=== PATIENT | female | born 1945 | race Caucasian/White ===

== ENCOUNTER 2017-12-19 08:23 | Inpatient (IN) | payer MEDICARE ==
[2017-12-11 15:37] LABS: BASOPHILS % (AUTO) 0.3 % (0-1); EOSINOPHILS # (AUTO) 0.3 X10'3 (0-0.9); LYMPHOCYTES # (AUTO) 1.2 X10'3 (1.1-4.8); LYMPHOCYTES % (AUTO) 12.8 % (21-51); MEAN CORPUSCULAR HEMOGLOBIN 32.2 PG (27.0-31.0); MEAN PLATELET VOLUME 8.9 FL (7.4-10.4); MONOCYTES # (AUTO) 0.6 X10'3 (0-0.9); MONOCYTES % (AUTO) 6.5 % (2-12); NEUTROPHILS # (AUTO) 7.3 X10'3 (1.8-7.7); NEUTROPHILS % (AUTO) 77.4 % (42-75); PRE OP HEMATOCRIT 42.7 % (35.0-45.0); PRE OP HEMOGLOBIN 14.9 g/dL (12.0-16.0); PRE OP PLATELET COUNT 240 X10'3 (140-440); RED BLOOD COUNT 4.64 X10'6 (4.20-5.60); RED CELL DISTRIBUTION WIDTH 12.2 % (11.5-14.5)
[2017-12-11 15:48] LABS: PRE OP PROTIME 10.7 SECONDS (9.0-12.0)
[2017-12-11 15:52] LABS: ALBUMIN 3.8 G/DL (3.4-5.0); ALBUMIN/GLOBULIN RATIO 1.1 (1.1-1.5); ALKALINE PHOSPHATASE 108 IU/L (46-116); BLOOD UREA NITROGEN 18 MG/DL (7-18); CALCIUM 9.3 MG/DL (8.5-10.1); CHLORIDE 108 MMOL/L (99-107); PRE OP ALT 16 U/L (30-65); PRE OP ANION GAP 10 (8-16); PRE OP AST 16 U/L (10-37); PRE OP BILIRUB, TOTAL 0.4 MG/DL (0.0-1.0); PRE OP GLUCOSE 99 MG/DL (70-104); PRE OP POTASSIUM 4.2 MMOL/L (3.4-5.1); PRE OP SODIUM 146 MMOL/L (135-145); TOTAL CARBON DIOXIDE 27.6 MMOL/L (24-32); TOTAL PROTEIN 7.3 G/DL (6.4-8.2); eGFR 61 ML/MIN
[~2017-12-19] VITALS: Ht 157.5 cm; Wt 68.0 kg
[2017-12-19] VITALS (17 sets, daily range): BP systolic 104–149; BP diastolic 44–95
[~2017-12-19 08:23] MED LIST: ATOR40TA PO; CARV25TA PO; DOCUMENT DATE & TIME OF BETA-BLOCKER PO ONE; GABA-532 PO; PANT-47 PO; SERT25TA PO; VANCOMYCIN INJ 1000 MG in NORMAL SALINE 250ml IV.SOLN IV ONE; cefazolin/dext.iso 2gm/50ml 50 ML IV ONE; famotidine 20mg tablet PO ONE; ringers solution, lacted 1,000 ML IV SCH; tranexamic acid inj. 1,000 MG in normal saline 100ml IV soln 90 ML IV ONE
[2017-12-19] MEDS ORDERED: ceFAZolin 1000mg inj ONE (10:13)
[2017-12-19] MEDS ORDERED: MIDAZolam 1mg/ml 10ml vial ONE (10:36)
[2017-12-19] MEDS ORDERED: ringers solution, lacted 1,000 ML IV SCH (11:34)
[2017-12-19] MEDS ORDERED: meperidine/PF 50mg/ml syringe IV PRN (11:35)
[2017-12-19] MEDS ORDERED: ondansetron/PF 4mg/2ml inj IV PRN ×2 (11:35→13:15)
[2017-12-19] MEDS ORDERED: morphine 2 MG/ML inj. syringe IV PRN ×2 (11:35)
[2017-12-19] MEDS ORDERED: proCHLORperazine 10 MG/2 ml inj IV PRN (11:35)
[2017-12-19] MEDS ORDERED: fentaNYL/PF 50MCG/1 ML 2ML syringe IV PRN ×2 (11:35)
[2017-12-19] MEDS ORDERED: propofol inj 20 ML IV ONE ×2 (12:10)
[2017-12-19] MEDS ORDERED: epiNEPHrine 1 mg/ml inj ONE (12:11)
[2017-12-19] MEDS ORDERED: magnesium hydroxide 30ml (MOM) UD suspension PO PRN (13:15)
[2017-12-19] MEDS ORDERED: diphenhydrAMINE 25mg capsule PO PRN ×2 (13:15)
[2017-12-19] MEDS ORDERED: HYDROmorphone 1 mg/ml syringe IV PRN (13:15)
[2017-12-19] MEDS ORDERED: bisacodyl 10mg suppository rectal RC PRN (13:15)
[2017-12-19] MEDS ORDERED: acetaminophen 325mg tablet PO PRN ×2 (13:15)
[2017-12-19] MEDS: potassium cl 20mEq in 1/2 NS 1,000 ML IV SCH (16:17)
[2017-12-19] MEDS: ketorolac tromethamine 15mg/ml inj. IV SCH ×2 (16:18→21:04)
[2017-12-19] MEDS: cefazolin 1gm/NS 100mL 100 ML IV SCH (16:19)
[2017-12-19] MEDS ORDERED: tranexamic acid inj. 1,000 MG in normal saline 100ml IV soln 100 ML IV ONE (16:24)
[2017-12-19] MEDS: aspirin 81mg tab.chew PO SCH (17:30)
[2017-12-19] MEDS: morphine 4 MG/ML inj SYRINge IV PRN (17:33)
[2017-12-19] MEDS: HYDROcodone/acetaminophen 10/325mg tab PO PRN ×2 (17:54→22:07)
[2017-12-19] MEDS: sennosides 8.6mg tablet PO SCH (19:18)
[2017-12-19] MEDS ORDERED: vancomycin/NS 1 GM ADD-VANTAGE 250 ML IV SCH (20:00)
[2017-12-19] MEDS: carVEDilol 12.5mg tablet PO SCH (21:04)
[2017-12-19] MEDS: gabapentin 300mg capsule PO SCH (21:05)
[2017-12-20] VITALS (7 sets, daily range): BP systolic 90–112; BP diastolic 38–56
[2017-12-20] MEDS: cefazolin 1gm/NS 100mL 100 ML IV SCH (00:14)
[2017-12-20] MEDS: ketorolac tromethamine 15mg/ml inj. IV SCH ×2 (02:10→09:06)
[2017-12-20] MEDS: potassium cl 20mEq in 1/2 NS 1,000 ML IV SCH ×3 (02:31→21:57)
[2017-12-20] MEDS: HYDROcodone/acetaminophen 10/325mg tab PO PRN ×5 (05:28→22:00)
[2017-12-20 06:53] LABS: BASOPHILS % (AUTO) 0.4 % (0-1); EOSINOPHILS # (AUTO) 0.2 X10'3 (0-0.9); EOSINOPHILS % (AUTO) 1.8 % (0-6); HEMATOCRIT 30.8 % (35.0-45.0); HEMOGLOBIN 10.8 g/dl (12.0-16.0); LYMPHOCYTES # (AUTO) 1.3 X10'3 (1.1-4.8); LYMPHOCYTES % (AUTO) 11.9 % (21-51); MEAN CORPUSCULAR HEMOGLOBIN 32.4 PG (27.0-31.0); MEAN CORPUSCULAR HGB CONC 35.2 % (33.0-36.5); MEAN CORPUSCULAR VOLUME 92.2 FL (78-98); MEAN PLATELET VOLUME 8.6 FL (7.4-10.4); MONOCYTES # (AUTO) 1.1 X10'3 (0-0.9); MONOCYTES % (AUTO) 10.7 % (2-12); NEUTROPHILS # (AUTO) 8.1 X10'3 (1.8-7.7); NEUTROPHILS % (AUTO) 75.2 % (42-75); PLATELET COUNT 148 X10'3 (140-440); RED BLOOD COUNT 3.34 X10'6 (4.20-5.60); RED CELL DISTRIBUTION WIDTH 12.1 % (11.5-14.5); WHITE BLOOD COUNT 10.7 X10'3 (4.5-11.0)
[2017-12-20 07:06] LABS: ALANINE AMINOTRANSFERASE 22 U/L (12-78); ALBUMIN 2.5 G/DL (3.4-5.0); ALKALINE PHOSPHATASE 63 IU/L (46-116); ANION GAP 8 (8-16); ASPARTATE AMINO TRANSFERASE 22 U/L (10-37); BILIRUBIN,TOTAL 0.6 MG/DL (0.1-1.0); BLOOD UREA NITROGEN 18 MG/DL (7-18); CHLORIDE 107 MMOL/L (99-107); GLUCOSE 100 MG/DL (70-104); POTASSIUM 3.8 MMOL/L (3.5-5.1); SODIUM 142 MMOL/L (135-145); TOTAL CARBON DIOXIDE 27.4 MMOL/L (24-32); eGFR 54 ML/MIN
[2017-12-20] MEDS: morphine 4 MG/ML inj SYRINge IV PRN (08:58)
[2017-12-20] MEDS: carVEDilol 12.5mg tablet PO SCH ×2 (09:05→20:16)
[2017-12-20] MEDS: pantoprazole 40mg Tablet.DR PO SCH (09:06)
[2017-12-20] MEDS: sertraline 50mg tablet PO SCH (09:06)
[2017-12-20] MEDS: aspirin 81mg tab.chew PO SCH ×2 (09:06→17:12)
[2017-12-20] MEDS: gabapentin 300mg capsule PO SCH (20:16)
[2017-12-20] MEDS: sennosides 8.6mg tablet PO SCH (20:16)
[2017-12-21] MEDS: HYDROcodone/acetaminophen 10/325mg tab PO PRN ×4 (05:31→21:13)
[2017-12-21 06:00] VITALS: BP 117/52
[2017-12-21 06:37] LABS: BASOPHILS % (AUTO) 0.1 % (0-1); EOSINOPHILS # (AUTO) 0.4 X10'3 (0-0.9); EOSINOPHILS % (AUTO) 4.2 % (0-6); HEMOGLOBIN 10.6 g/dl (12.0-16.0); LYMPHOCYTES # (AUTO) 1.1 X10'3 (1.1-4.8); LYMPHOCYTES % (AUTO) 11.3 % (21-51); MEAN CORPUSCULAR HEMOGLOBIN 32.9 PG (27.0-31.0); MEAN CORPUSCULAR HGB CONC 35.3 % (33.0-36.5); MEAN CORPUSCULAR VOLUME 93.2 FL (78-98); MEAN PLATELET VOLUME 8.7 FL (7.4-10.4); MONOCYTES % (AUTO) 10.3 % (2-12); NEUTROPHILS # (AUTO) 7.4 X10'3 (1.8-7.7); NEUTROPHILS % (AUTO) 74.1 % (42-75); PLATELET COUNT 135 X10'3 (140-440); RED BLOOD COUNT 3.22 X10'6 (4.20-5.60); RED CELL DISTRIBUTION WIDTH 12.3 % (11.5-14.5)
[2017-12-21 07:02] LABS: ALANINE AMINOTRANSFERASE 19 U/L (12-78); ALBUMIN 2.3 G/DL (3.4-5.0); ALBUMIN/GLOBULIN RATIO 0.8 (1.1-1.5); ALKALINE PHOSPHATASE 59 IU/L (46-116); ANION GAP 8 (8-16); ASPARTATE AMINO TRANSFERASE 23 U/L (10-37); BILIRUBIN,TOTAL 0.5 MG/DL (0.1-1.0); BLOOD UREA NITROGEN 18 MG/DL (7-18); BUN/CREATININE RATIO 16.5 (6.6-38.0); CHLORIDE 108 MMOL/L (99-107); CREATININE 1.09 MG/DL (0.40-0.90); GLUCOSE 94 MG/DL (70-104); POTASSIUM 3.8 MMOL/L (3.5-5.1); SODIUM 142 MMOL/L (135-145); TOTAL CARBON DIOXIDE 26.5 MMOL/L (24-32); TOTAL PROTEIN 5.2 G/DL (6.4-8.2); eGFR 49 ML/MIN
[2017-12-21] MEDS ORDERED: HYDROcodone/acetaminophen 10/325mg tab PO ONE (07:45)
[2017-12-21] MEDS: pantoprazole 40mg Tablet.DR PO SCH (07:46)
[2017-12-21] MEDS: aspirin 81mg tab.chew PO SCH ×2 (07:46→17:22)
[2017-12-21] MEDS: carVEDilol 12.5mg tablet PO SCH ×2 (07:46→20:08)
[2017-12-21] MEDS: sertraline 50mg tablet PO SCH (07:46)
[2017-12-21 10:00] VITALS: BP 89/42
[2017-12-21 18:00] VITALS: BP 141/63
[2017-12-21] MEDS: gabapentin 300mg capsule PO SCH (20:07)
[2017-12-21] MEDS: sennosides 8.6mg tablet PO SCH (20:07)
[2017-12-21 20:09] VITALS: BP 118/61
[2017-12-21 22:00] VITALS: BP 128/68
[2017-12-22] MEDS: HYDROcodone/acetaminophen 10/325mg tab PO PRN ×3 (05:12→12:27)
[2017-12-22 05:45] LABS: BASOPHILS % (AUTO) 0.4 % (0-1); EOSINOPHILS # (AUTO) 0.6 X10'3 (0-0.9); EOSINOPHILS % (AUTO) 5.8 % (0-6); HEMATOCRIT 29.7 % (35.0-45.0); HEMOGLOBIN 10.4 g/dl (12.0-16.0); LYMPHOCYTES % (AUTO) 10.6 % (21-51); MEAN CORPUSCULAR HEMOGLOBIN 32.2 PG (27.0-31.0); MEAN CORPUSCULAR HGB CONC 34.9 % (33.0-36.5); MEAN CORPUSCULAR VOLUME 92.2 FL (78-98); MEAN PLATELET VOLUME 8.9 FL (7.4-10.4); MONOCYTES # (AUTO) 0.8 X10'3 (0-0.9); MONOCYTES % (AUTO) 8.4 % (2-12); NEUTROPHILS # (AUTO) 7.3 X10'3 (1.8-7.7); NEUTROPHILS % (AUTO) 74.8 % (42-75); PLATELET COUNT 151 X10'3 (140-440); RED BLOOD COUNT 3.22 X10'6 (4.20-5.60); RED CELL DISTRIBUTION WIDTH 12.5 % (11.5-14.5); WHITE BLOOD COUNT 9.8 X10'3 (4.5-11.0)
[2017-12-22 06:00] VITALS: BP 116/62
[2017-12-22 06:07] LABS: ALANINE AMINOTRANSFERASE 15 U/L (12-78); ALBUMIN 2.2 G/DL (3.4-5.0); ALBUMIN/GLOBULIN RATIO 0.7 (1.1-1.5); ALKALINE PHOSPHATASE 62 IU/L (46-116); ANION GAP 6 (8-16); ASPARTATE AMINO TRANSFERASE 17 U/L (10-37); BILIRUBIN,TOTAL 0.4 MG/DL (0.1-1.0); BLOOD UREA NITROGEN 14 MG/DL (7-18); BUN/CREATININE RATIO 16.3 (6.6-38.0); CALCIUM 8.3 MG/DL (8.5-10.1); CHLORIDE 109 MMOL/L (99-107); CREATININE 0.86 MG/DL (0.40-0.90); GLUCOSE 98 MG/DL (70-104); POTASSIUM 3.8 MMOL/L (3.5-5.1); SODIUM 142 MMOL/L (135-145); TOTAL CARBON DIOXIDE 26.8 MMOL/L (24-32); TOTAL PROTEIN 5.5 G/DL (6.4-8.2); eGFR 65 ML/MIN
[2017-12-22] MEDS: carVEDilol 12.5mg tablet PO SCH (07:47)
[2017-12-22] MEDS: aspirin 81mg tab.chew PO SCH (07:47)
[2017-12-22] MEDS: pantoprazole 40mg Tablet.DR PO SCH (07:47)
[2017-12-22] MEDS: sertraline 50mg tablet PO SCH (07:48)
[2017-12-22 10:00] VITALS: BP 117/51
== END 2017-12-22 12:30 | disposition home or self-care (01) | DRG 470 ==
LOC: PAS IN 08:23 → EDSTATUS 09:45 → ORTHO 4S 14:05
PROVIDERS: ADMIT Orthopaedic Surgery; ATTEND Orthopaedic Surgery
PROC: 0SRB0JZ Replacement of Left Hip Joint with Synthetic Substitute, Open Approach (ICD-10-PCS; principal; 2017-12-19 10:20)
DX: M16.12 Unilateral primary osteoarthritis, left hip (principal); Z96.641 Presence of right artificial hip joint; D62 Acute posthemorrhagic anemia; F32.9 Major depressive disorder, single episode, unspecified; I10 Essential (primary) hypertension; E78.5 Hyperlipidemia, unspecified; K21.9 Gastro-esophageal reflux disease without esophagitis; Z88.2 Allergy status to sulfonamides; Z88.8 Allergy status to other drugs, medicaments and biological substances; Z79.899 Other long term (current) drug therapy
CPT/HCPCS: 36415; 71046; 80053; 85025; 85610; 85730; 86885; 86900; 86901; 86920; 87070; 93005; 97110; 97116; 97162; 97530; A6223; A6253; A6449; A7000; C1758; C1776; J0171; J0690; J1885; J2250; J2270; J2405; J2704; J3370; J7030; J7120

== ENCOUNTER 2022-08-05 05:48 | Emergency (ER) | payer MEDICARE ==
[~2022-08-05] VITALS: Ht 157.5 cm; Wt 70.5 kg
[~2022-08-05 05:48] MED LIST changes: -ATOR40TA PO; -DOCUMENT DATE & TIME OF BETA-BLOCKER PO ONE; -VANCOMYCIN INJ 1000 MG in NORMAL SALINE 250ml IV.SOLN IV ONE; -cefazolin/dext.iso 2gm/50ml 50 ML IV ONE; -famotidine 20mg tablet PO ONE; -ringers solution, lacted 1,000 ML IV SCH; -tranexamic acid inj. 1,000 MG in normal saline 100ml IV soln 90 ML IV ONE
[2022-08-05] MEDS ORDERED: TRIA15CR62 TOP (06:29)
[2022-08-05 07:51] VITALS: BP 169/82
--- NOTE | 2022-08-05 07:58 | NUR ---
Pt given and understands d/c instructions. Ambulatory with a steady gait.
== END 2022-08-05 08:00 | disposition home or self-care (01) ==
LOC: ER 05:48
DX: S60.221A Contusion of right hand, initial encounter (principal); L23.7 Allergic contact dermatitis due to plants, except food; I10 Essential (primary) hypertension; Z88.2 Allergy status to sulfonamides; Z88.5 Allergy status to narcotic agent; X58.XXXA Exposure to other specified factors, initial encounter; Y93.89 Activity, other specified; Y92.89 Other specified places as the place of occurrence of the external cause; Y99.8 Other external cause status
CPT/HCPCS: 29125; 73130; 99284

== ENCOUNTER 2024-12-06 07:20 | Emergency (ER) | payer MEDICARE ==
[~2024-12-06] VITALS: Ht 160 cm; Wt 70.7 kg
[2024-12-06 07:26] VITALS: BP 116/67; PULSE 77; RESP 18; O2SAT 95
[2024-12-06] MEDS ORDERED: ALBU18HF2 INH (09:35)
[2024-12-06] MEDS ORDERED: ONDA-245 PO (09:35)
[2024-12-06 09:39] VITALS: TEMP 97.6
== END 2024-12-06 09:40 | disposition home or self-care (01) ==
LOC: ER 07:20
DX: J22 Unspecified acute lower respiratory infection (principal); I10 Essential (primary) hypertension; Z88.2 Allergy status to sulfonamides; Z88.6 Allergy status to analgesic agent
CPT/HCPCS: 71046; 99284